=== PATIENT | male | born 1935 | race Caucasian/White ===

== ENCOUNTER → 2018-07-13 | Outpatient (REF) | payer MEDICARE, BC ==
[~2018-07-13] MED LIST: ADLT ASA LOW81 MG PO; AMBIEN CR12.5 MG PO; CELEBREX200 MG PO; CEPHALEXIN500 MG OR; CIPRO500 MG OR; COMPLETE VITAMIN PO; COUMADIN2 MG PO; COUMADIN4 MG PO; ENOXAPARIN100 MG/ML; FLAGYL500 MG OR; LIPITOR10 MG PO; MEDDOSEPAK PO; METAMUCIL PO; METAXALONE800 M1 PO; MILK OF MAG2 PO; MULTIVITAM10 OR; NEXIUM40 M1 PO; NORVASC5 MG PO; OXYCODONE30 MG PO; OXYCONTIN PO; SKELAXIN800 MG PO; STOOL SOFTE1 PO; STOOL SOFTENER100 MG PO; SYNTHROID PO; TENORMIN PO; WARFARIN2 MG OR; [UNRECOGNIZED DRUG - OTHER] PO
[2018-07-13 09:44] LABS: ALBUMIN 4.5 g/dL (3.2-5.0); ALKALINE PHOSPHATASE 64 u/l (38-126); ANION GAP 15 (6-22 (CALC)); BILIRUBIN, TOTAL 0.5 mg/dL (0.0-1.4); BUN 24 mg/dL (8-23); BUN/CREATININE RATIO 27 (12-20 (CALC)); CARBON DIOXIDE 23 mmol/l (22-30); CHLORIDE 107 mmol/l (95-108); CREATININE 0.9 mg/dL (0.7-1.3); GFR > 60 ML/MIN (>=60 (CALC)); GFR FOR AFR.AMER. > 60 ML/MIN (>=60 (CALC)); POTASSIUM 4.3 mmol/l (3.5-5.1); SGOT/AST 23 u/l (19-48); SODIUM 141 mmol/l (137-146); TOTAL PROTEIN 7.5 g/dL (6.3-8.2)
[2018-07-13 10:14] LABS: TSH, 3RD GENERATION 0.17 uIU/mL (0.47 - 4.68)
[2018-07-13 10:20] LABS: URINE BILIRUBIN - DIPSTICK NEGATIVE (NEGATIVE); URINE BLOOD DIPSTICK NEGATIVE (NEGATIVE); URINE COLOR YELLOW; URINE GLUCOSE - DIPSTICK NEGATIVE (NEGATIVE); URINE KETONE NEGATIVE (NEGATIVE); URINE LEUK ESTERASE NEGATIVE (NEGATIVE); URINE NITRITE - DIPSTICK NEGATIVE (Negative); URINE PROTEIN - DIPSTICK NEGATIVE (NEG-TRACE); URINE SPECIFIC GRAVITY <=1.005; URINE UROBILINOGEN - DIPSTICK 0.2 E.U./dL (0.2)
[2018-07-13 10:40] LABS: MEAN CORPUSCULAR HGB 32.5 pG CALC (26.0-32.0); MEAN CORPUSCULAR HGB CONC 32.5 g/L CALC (32.0-36.0); RED CELL DISTRI WIDTH 14.3 % (11.5-15.5)
== END | disposition home or self-care (01) ==
LOC: LAB 08:27
PROVIDERS: ATTEND Nurse Practitioner Adult Health
DX: E03.9 Hypothyroidism, unspecified (principal); I10 Essential (primary) hypertension

== ENCOUNTER → 2018-07-20 | Outpatient (REF) | payer MEDICARE, BC | END | disposition home or self-care (01) | LOC: DI 10:26 | PROVIDERS: ATTEND Nurse Practitioner Family | DX: M54.5 Low back pain (principal); Z98.890 Other specified postprocedural states; Z96.642 Presence of left artificial hip joint ==

== ENCOUNTER 2018-11-20 15:03 | Emergency (ER) | payer MEDICARE, BC ==
[~2018-11-20] VITALS: Ht 177.8 cm; Wt 85.0 kg
[2018-11-20 15:14] VITALS: BP 156/66
== END 2018-11-20 15:09 | disposition home or self-care (01) ==
LOC: ED 15:03
DX: L76.32 Postprocedural hematoma of skin and subcutaneous tissue following other procedure (principal); Y84.7 Blood-sampling as the cause of abnormal reaction of the patient, or of later complication, without mention of misadventure at the time of the procedure